=== PATIENT | male | born 1935 | race Caucasian/White ===

== ENCOUNTER 2016-12-27 19:45 | Inpatient (IN) | payer MEDICARE, OTHER ==
[2016-12-27 20:20] LABS: BASOPHIL 0.1 % (0-2); EOSINOPHIL 0 % (0-7); HCT 40.9 % (42.0-52.0); HGB 13.4 g/dl (13.2-18.0); MCHC 32.8 g/dL (32.0-36.0); MCV 79.3 fL (78.0-100.0); MONOCYTE 6.2 % (0-12); MPV 10.6 fL (6.0-9.5); NEUTROPHIL 90.7 % (41-80); PLT 254 K/uL (150-400); RBC 5.16 M/uL (4.70-6.00); RDW 15.6 % (11.5-14.0)
[2016-12-27 20:24] LABS: WBC 20.1 K/uL (4.0-10.5)
[2016-12-27 20:50] LABS: ALBUMIN 3.6 g/dL (3.4-4.8); BILIRUBIN - TOTAL 1.1 mg/dL (0.1-1.0); CREATININE 1.3 mg/dL (0.7-1.2); GLOBULIN (CALCULATION) 3.9 g/dL (2.2-4.2); POTASSIUM 3.4 mmol/L (3.5-5.1); TOTAL PROTEIN 7.5 g/dL (6.4-8.3)
[2016-12-27 21:01] LABS: TROPONIN T 0.022 ng/mL
[2016-12-27 21:02] LABS: LACTIC ACID 3.2 mmol/L (0.5-2.2)
[2016-12-28 01:11] LABS: INR 1.14 (0.9-1.2); PROTHROMBIN TIME 14.2 SECONDS (11.7-14.0); PTT 31.8 SECONDS (23.2-31.4)
[2016-12-28 03:19] LABS: BILIRUBIN 1+ mg/dL (NEGATIVE); BLOOD 1+ Ery/uL (NEGATIVE); CLARITY CLEAR (CLEAR); COLOR YELLOW (YELLOW); GLUCOSE (U) NORMAL (NORMAL); KETONE (U) 1+ (SMALL) mg/dL (NEGATIVE); LEUKOCYTES NEGATIVE Leu/uL (NEGATIVE); NITRITE NEGATIVE (NEGATIVE); PROTEIN 1+ mg/dL (NEGATIVE); pH 5.5 (5.0-9.0)
[2016-12-28 03:37] LABS: BACTERIA TRACE
[2016-12-28 05:50] LABS: BASOPHIL 0.1 % (0-2); EOSINOPHIL 0 % (0-7); HCT 39.4 % (42.0-52.0); HGB 12.9 g/dl (13.2-18.0); LYMPHOCYTE 3.2 % (15-48); MCHC 32.7 g/dL (32.0-36.0); MCV 79.3 fL (78.0-100.0); MONOCYTE 1.7 % (0-12); MPV 10.9 fL (6.0-9.5); PLT 265 K/uL (150-400); RBC 4.97 M/uL (4.70-6.00); RDW 15.7 % (11.5-14.0); WBC 17.5 K/uL (4.0-10.5)
[2016-12-28 05:58] LABS: INR 1.28 (0.9-1.2); PROTHROMBIN TIME 15.5 SECONDS (11.7-14.0)
[2016-12-28 06:09] LABS: TROPONIN T 0.011 ng/mL
[2016-12-28 06:11] LABS: CKMB 12.07 ng/mL (0.97-4.94)
[2016-12-28 06:18] LABS: ALBUMIN 3.6 g/dL (3.4-4.8); POTASSIUM 3.1 mmol/L (3.5-5.1)
--- NOTE | 2016-12-28 06:18 | NUR ---
0450: HEPARIN BOLUS ADMINSTERED PER PROTOCOL AND MD ORDER, WAS NOT GIVEN IN THE ED, PT ADVISED ON RISKS, VERBALIZED UNDERSTANDING
[2016-12-28 06:32] LABS: BILIRUBIN - TOTAL 0.6 mg/dL (0.1-1.0); CREATININE 1.4 mg/dL (0.7-1.2); GLOBULIN (CALCULATION) 3.4 g/dL (2.2-4.2); MAGNESIUM 2.03 mg/dL (1.40-2.10); PHOSPHORUS 3.5 mg/dL (2.7-4.5)
[2016-12-28 06:54] LABS: PTT > 180 SECONDS (23.2-31.4)
[2016-12-28 12:24] LABS: TROPONIN T < 0.010 ng/mL
[2016-12-28 12:51] LABS: CKMB 15.24 ng/mL (0.97-4.94)
[2016-12-29 03:40] LABS: HCT 32.9 % (42.0-52.0); HGB 10.8 g/dl (13.2-18.0); MCH 26.3 pg (25.0-31.0); MCHC 32.8 g/dL (32.0-36.0); MPV 10.7 fL (6.0-9.5); RBC 4.11 M/uL (4.70-6.00); RDW 15.5 % (11.5-14.0)
[2016-12-29 03:55] LABS: INR 1.59 (0.9-1.2); PROTHROMBIN TIME 18.4 SECONDS (11.7-14.0); PTT 40.1 SECONDS (23.2-31.4)
[2016-12-29 03:59] LABS: CREATININE 1.2 mg/dL (0.7-1.2); PHOSPHORUS 2.4 mg/dL (2.7-4.5); POTASSIUM 3.4 mmol/L (3.5-5.1)
[2016-12-30 04:50] LABS: HGB 11.8 g/dl (13.2-18.0); MCH 25.8 pg (25.0-31.0); MCHC 31.9 g/dL (32.0-36.0); MCV 80.8 fL (78.0-100.0); MPV 10.1 fL (6.0-9.5); RBC 4.58 M/uL (4.70-6.00); RDW 15.8 % (11.5-14.0); WBC 16.3 K/uL (4.0-10.5)
[2016-12-30 05:09] LABS: CREATININE 1.4 mg/dL (0.7-1.2); POTASSIUM 3.5 mmol/L (3.5-5.1)
[2016-12-31 03:30] LABS: HCT 37.7 % (42.0-52.0); HGB 12.1 g/dl (13.2-18.0); MCH 25.9 pg (25.0-31.0); MCHC 32.1 g/dL (32.0-36.0); MCV 80.6 fL (78.0-100.0); MPV 10.1 fL (6.0-9.5); RBC 4.68 M/uL (4.70-6.00); RDW 15.4 % (11.5-14.0)
[2016-12-31 03:53] LABS: CREATININE 1.3 mg/dL (0.7-1.2); POTASSIUM 3.6 mmol/L (3.5-5.1)
[2016-12-31] MEDS ORDERED: SPIRIVA18 MCG INH (10:55)
[2016-12-31] MEDS ORDERED: CARDIZEM CD240 MG PO (10:56)
[2016-12-31] MEDS ORDERED: ADVAIR 250-501 EACH INH (10:56)
[2016-12-31] MEDS ORDERED: COLACE100 MG PO (10:56)
[2016-12-31] MEDS ORDERED: DIGITEK125 MCG PO (10:57)
[2016-12-31] MEDS ORDERED: CERTAGEN1 EACH PO (10:57)
[2016-12-31] MEDS ORDERED: MUCINEX 600MG600 MG PO (10:57)
[2016-12-31] MEDS ORDERED: CALCIUM 600 +1 EAC7 PO (10:57)
[2016-12-31] MEDS ORDERED: LASIX40 MG PO (10:58)
[2016-12-31] MEDS ORDERED: ZYRTEC10 MG PO (10:58)
[2016-12-31] MEDS ORDERED: CELEXA10 MG PO (10:58)
[2016-12-31] MEDS ORDERED: K-DUR20 MEQ PO (10:59)
[2016-12-31] MEDS ORDERED: AUGMENTIN 875-1 EACH PO (10:59)
[2016-12-31] MEDS ORDERED: LOVAZA1 GM PO (10:59)
[2016-12-31] MEDS ORDERED: XARELTO15 MG PO (10:59)
[2016-12-31] MEDS ORDERED: PREDNISONE5 MG PO (10:59)
[2016-12-31] MEDS ORDERED: PREDNISONE 10MG10 MG PO (11:01)
== END 2016-12-31 12:45 | disposition home or self-care (01) | DRG 871 ==
LOC: FER 19:45 → FICU 12-28 00:50
PROVIDERS: Emergency Medicine Emergency Medical Services; Internal Medicine; Internal Medicine Adolescent Medicine; ADMIT Internal Medicine
DX: A41.9 Sepsis, unspecified organism (principal); J18.9 Pneumonia, unspecified organism; I26.99 Other pulmonary embolism without acute cor pulmonale; J96.21 Acute and chronic respiratory failure with hypoxia; R65.21 Severe sepsis with septic shock; N18.3 Chronic kidney disease, stage 3 (moderate); I27.2 Other secondary pulmonary hypertension; J44.0 Chronic obstructive pulmonary disease with (acute) lower respiratory infection; J44.1 Chronic obstructive pulmonary disease with (acute) exacerbation; R91.8 Other nonspecific abnormal finding of lung field; R59.9 Enlarged lymph nodes, unspecified; I12.9 Hypertensive chronic kidney disease with stage 1 through stage 4 chronic kidney disease, or unspecified chronic kidney disease; I48.2 Chronic atrial fibrillation; E78.5 Hyperlipidemia, unspecified; R53.1 Weakness; Z99.81 Dependence on supplemental oxygen; Z88.8 Allergy status to other drugs, medicaments and biological substances; Z87.891 Personal history of nicotine dependence; Z82.3 Family history of stroke; Z84.89 Family history of other specified conditions; Z79.899 Other long term (current) drug therapy
CPT/HCPCS: 36415; 36600; 71010; 71275; 80048; 80053; 80162; 80202; 81001; 82550; 82553; 82803; 82962; 83605; 83735; 83880; 84100; 84145; 84484; 85025; 85610; 85730; 87040; 87088; 87804; 87899; 93005; 94010; 94640; 94664; 97162; 97166; 97530; 97530-GP; 97535; J0456; J1160; J1644; J2543; J2930; J3370; Q9967